=== PATIENT | male | born 1960 | race Caucasian/White ===

== ENCOUNTER 2017-05-30 09:00 | Inpatient (IN) | payer BC ==
--- NOTE | 2017-05-17 20:11 | HP ---
HISTORY AND PHYSICAL: DATE OF ADMISSION/SURGERY: 06/01/17 PRIMARY CARE PHYSICIAN: Dr. Woods. SURGEON: Ivonne Bills MD * (DICTATED BY SHANNON FOURNIER) PROCEDURE: Left total knee arthroplasty. CHIEF COMPLAINT: Left knee pain. HISTORY OF PRESENT ILLNESS: Mr. Hilton is a 56-year-old gentleman with continued complaints of left knee pain secondary to advanced osteoarthritis. He has failed conservative management and elected to proceed with a left total knee arthroplasty, which is scheduled on 06/01/[address] Bills. PAST MEDICAL HISTORY: Hypertension, history of melanoma, high cholesterol, ADHD , seasonal allergies, and cervical and lumbar stenosis. PAST SURGICAL HISTORY: Removal of melanoma; cyst removal, right wrist; bilateral carpal tunnel release; and hernia repair. CURRENT MEDICATIONS: 1. Simvastatin. 2. Methylphenidate. 3. Vitamin C Men's one a day. 4. Fish oil. 5. Tylenol. 6. Celebrex. 7. Magnesium. ALLERGIES: None. FAMILY HISTORY: Coronary artery disease and cancer. SOCIAL HISTORY: He is a 56-year-old gentleman. Lives with his . 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 He quit smoking back in 1990. He denies use of drugs and use of occasional alcohol. REVIEW OF SYSTEMS: A complete 14-point review of systems was reviewed with the patient, it was positive for history of hypertension. He denies history of DVT , PE, hepatitis C, HIV, or anesthesia problems. PHYSICAL EXAMINATION GENERAL: He is well developed, well nourished, in no acute distress. VITAL SIGNS: He stands 5 feet tall 9 inches tall, weighs 230 pounds. His blood pressure is 120/82, his heart rate is 84. HEENT: Normocephalic, atraumatic. NECK: Supple. No palpable lymph nodes. PULMONARY: Lungs are clear to auscultation bilaterally. CARDIO: Regular rate and rhythm. Strong S1, S2. ABDOMEN: Soft, nontender, and nondistended. MUSCULOSKELETAL: Left lower extremity, the skin is intact. There are no open wounds or abrasions. There is a mild joint effusion and some tenderness over the medial and lateral joint line. 10 to 120 degrees range of motion bilaterally. He is distally neurovascularly intact. ASSESSMENT AND PLAN: Mr. Hilton is a 56-year-old gentleman with continued complaints of left knee pain secondary to advanced osteoarthritis. He has failed conservative management and elected to proceed with a left total knee arthroplasty, which is scheduled for 06/01/[address] Bills discussed the risks and benefits of the surgery at today's visit and all of his questions were answered. Coumadin, Percocet, and Colace were sent to his pharmacy for postoperative pain control and DVT prophylaxis. He will follow with Dr. Bills 2 weeks after the surgery. SHANNON FOURNIER [id number]/[facility] #: [id number] VIRGIL
[2017-05-31] MEDS ORDERED: Buffered Lidocaine 0.9% SYRIN* 5 ML/SYR SYRINGE INTRADERM ONE (15:45)
--- OUTSIDE RECORDS SUMMARY | 2017-06-01 08:06 | XMS REPORT ---
:1960 External Reference #:[id number] Author Organization [facility] Address [address] [address] Phone [phone] Care Team Providers Name Role Phone Vineet Woods MD Primary Care Physician Unavailable Payers Type Date Identification Numbers Payment Provider Subscriber Commercial Effective: Policy Number: BS Storm Hilton 2016 [id number] PayID: [id number] Jose J [id number] ZANDER Krishnan [id number] Medigap Part B Effective: 2016 Policy Number: BS Storm Gerry Hilton [id number] Expires: 2016 PayID: [id number] ZANDER Marin [id number] Medigap Part B Effective: 2011 Policy Number: BS Storm Hilton [id number] Expires: 2016 PayID: [id number] Jose J [id number] Garner [id number] Problems Date Description Provider Status Onset: 03/09/2016 Localized, primary osteoarthritis Ivonne Bills M.D. Active Onset: 05/21/2014 Chest pain Charity Castro M.D. Active Onset: 06/17/2013 Cervical spondylosis without myelopathy Armnado Shaw M.D. Active Onset: 02/19/2013 Dizziness and giddiness Charity Castro M.D. Active Onset: 02/19/2013 FH: Cardiovascular disease Charity Castro M.D. Active Onset: 02/19/2013 Obesity Charity Castro M.D. Active Onset: 02/19/2013 Pure hypercholesterolemia Charity Castro M.D. Active Onset: 02/19/2013 Essential hypertension Charity Castro M.D. Active Onset: 02/19/2013 Palpitations Charity Castro M.D. Active Family History Date Family Member(s) Problem(s) Comments General Heart Disease General Coronary Artery Disease (CAD) General Cancer General Spinal Stenosis father Social History Type Date Description Comments Lives With Occupation [employer] currently working Cigarette Use Quit 23 Years Ago ETOH Use Drinks Alcoholic Beverages Occasionally Smoking Patient is a former smoker quit in 1990 Recreational Drug Use Denies Drug Use Daily Caffeine Consumes on average 2 cups of regular 1-2 cups daily coffee per day Allergies, Adverse Reactions, Alerts Date Description Reaction Status Severity Comments 07/04/2012 NKDA active Medications Medication Date Status Form Strength Qnty SIG Indications Ordering Provider Warfarin Sodium 05/17 Active Tablets 2mg 90tab take 1-3 Ivonne s tabs by Sanju, mouth at M.D. 5pm nightly Colace 05/17 Active Capsules 100mg 90cap 1 tab by Ivonne s mouth 2-3 Sanju, times a M.D. day as needed Oxycodone-Acetaminop 05/17 Active Tablets 5-325mg 90tab 1-2 tabs Ivonne s by mouth Sanju, every 4-6 M.D. hours as needed for post-op pain. Simvastatin 00 Active Tablets 20mg 1 po qhs Unknown /0000 Methylphenidate HCL Active Tablets 36mg Unknown ER /0000 ER Vitamin C Active Tablets 1000mg 1 po qd Unknown /0000 prn Mens 50+ Multi Active Tablets 1 po qd Unknown Vitamin & /0000 Mineral Formula Fish Oil Active 1 po qd Unknown /0000 Tylenol 00/ Active Unknown /0000 Celebrex Active Unknown /0000 Hydrochlorothiazide Hx Capsules 12.5mg 1 po qd Unknown /0000 - 05/21 Flector Hx Patches 1.3% 60uni q 12 Unknown /0000 ts hours prn - 05/21 B Complete / Hx Tablets 1 po qd Unknown /0000 - 05/16 Metamucil 00/00 Hx 1 tbsp po Unknown /0000 qd - 01/11 Percocet 00/ Hx 1 qhs Unknown /0000 - 01/11 Skelaxin Hx 1 tablet Unknown /0000 daily - - muscle 01/11 relaxant Ibuprofen Hx 300mg 1 q4hr Unknown /0000 - 05/16 Naproxen Hx Unknown /0000 - 05/16 Medications Administered in Office Medication Date Status Form Strength Qnty SIG Indications Ordering Provider Depomedrol Administered Injection Ivonne 40MG Wu Bills M.D. Depomedrol Administered Injection Ivonne 40MG Wu Bills M.D. Depomedrol Administered Injection Ivonne 40MG Wu Bills M.D. Depomedrol Administered Injection Ivonne 40MG Wu Bills M.D. Depomedrol Administered Injection Ivonne 40MG Jack Bills M.D. Depomedrol Administered Injection Ivonne 40MG 016 Margret Bills Depomedrol Administered Injection [place] 40MG Jack Corral M.D. Vital Signs Date Vital Result Comment 05/17/2017 Height 69 inches 5'9" Weight 231.00 lb Heart Rate 84 /min BP Systolic 120 mmHg BP Diastolic 82 mmHg BMI (Body Mass Index) 34.1 kg/m2 04/10/2017 Height 69 inches 5'9" Weight 230.00 lb Respiratory Rate 18 /min Pain Level 8 At Worst BMI (Body Mass Index) 34.0 kg/m2 01/06/2017 Height 69 inches 5'9" Weight 230.00 lb BP Systolic 122 mmHg BP Diastolic 74 mmHg Respiratory Rate 18 /min Pain Level 4 BMI (Body Mass Index) 34.0 kg/m2 09/02/2016 Height 69 inches 5'9" Weight 230.00 lb Heart Rate 85 /min BP Systolic 133 mmHg BP Diastolic 87 mmHg Body Temperature 97.3 F BMI (Body Mass Index) 34.0 kg/m2 06/01/2016 Height 69.5 inches 5'9.50" Weight 228.00 lb Respiratory Rate 19 /min Pain Level 3 BMI (Body Mass Index) 33.2 kg/m2 04/20/2016 Height 69.5 inches Weight 228.00 lb Heart Rate 79 /min BP Systolic 138 mmHg BP Diastolic 80 mmHg Pain Level 8 BMI (Body Mass Index) 33.2 kg/m2 03/09/2016 Height 69.5 inches 5'9.50" Weight 228.00 lb Heart Rate 74 /min BP Systolic 134 mmHg BP Diastolic 84 mmHg Pain Level 6 BMI (Body Mass Index) 33.2 kg/m2 02/03/2016 Height 69 inches 5'9" Weight 218.00 lb BP Systolic 142 mmHg BP Diastolic 82 mmHg Pain Level 1 BMI (Body Mass Index) 32.2 kg/m2 01/13/2016 Height 69 inches 5'9" Weight 218.00 lb Heart Rate 64 /min BP Systolic Sitting 138 mmHg BP Diastolic Sitting 82 mmHg Respiratory Rate 16 /min Pain Level 6 BMI (Body Mass Index) 32.2 kg/m2 07/02/2014 Height 68.5 inches 5'8.50" Weight 227.00 lb Heart Rate 76 /min BP Systolic Sitting 124 mmHg LA, Lg cuff BP Diastolic Sitting 82 mmHg LA, Lg cuff BP Systolic Standing 128 mmHg LA BP Diastolic Standing 82 mmHg LA Respiratory Rate 16 /min BMI (Body Mass Index) 34.0 kg/m2 05/21/2014 Height 68.5 inches 5'8.50" Weight 226.00 lb without shoes Heart Rate 88 /min BP Systolic Sitting 130 mmHg L arm , reg cuff BP Diastolic Sitting 90 mmHg L arm , reg cuff BP Systolic Standing 128 mmHg BP Diastolic Standing 90 mmHg Respiratory Rate 18 /min BMI (Body Mass Index) 33.9 kg/m2 06/17/2013 Height 68.5 inches 5'8.50" Weight 216.00 lb BP Systolic 138 mmHg BP Diastolic 78 mmHg Pain Level 0 BMI (Body Mass Index) 32.4 kg/m2 02/19/2013 Height 68.5 inches 5'8.50" Weight 211.00 lb Heart Rate 68 /min BP Systolic Sitting 118 mmHg LA reg cuff BP Diastolic Sitting 78 mmHg LA reg cuff BP Systolic Standing 110 mmHg LA BP Diastolic Standing 84 mmHg LA Respiratory Rate 18 /min BMI (Body Mass Index) 31.6 kg/m2 Results Description No Information Procedures Date CPT Code Description Status 01/06/2017 Inject/Drain Joint/Bursa Major Completed 09/02/2016 Inject/Drain Joint/Bursa Major Completed 03/09/2016 Inject/Drain Joint/Bursa Major Completed 01/13/2016 Inject Tendon Sheath Or Ligament Aponeurosis Eg Plantar Completed Fascia 06/17/2014 34648 ECHO Stress Test Incl Perf Contiuous ekg Monitoring Completed W/Phys Superv 05/21/2014 59058 EKG Tracing & Interpretation Completed 01/28/2014 16000 Repair Hernia Umbilical > 5 Yrs, Reducible Completed 08/09/2012 96648 Stress Test Completed 07/13/2012 30606 ECHO Transthoracic, Real-Time 2D With Doppler And Color Completed Flow 07/04/2012 97860 EKG Tracing & Interpretation Completed Encounters Type Date Location Provider CPT E/M Dx Office Visit 04/10/2017 [facility] Ivonne Bills M.D. 65353 M25.561 8:30a [facility] M25.562 M25.461 M25.462 M17.0 Office Visit 06/01/2016 8:15a [facility] Ivonne Bills M.D. 05477 M25.561 [facility] M25.562 M17.0 M25.461 M25.462 Office Visit 04/20/2016 11:30a [facility] Ivonne Bills M.D. 96533 M25.561 [facility] M25.562 M25.461 M17.0 Office Visit 03/09/2016 10:15a [facility] Ivonne Bills M.D. 64272 M25.561 [facility] M25.562 M17.0 M25.462 M25.461 Office Visit 02/03/2016 2:00p [facility] [place] Corral 35832 M65.341 Of CBrit Oswald Office Visit 01/13/2016 2:00p [facility] [place] 37257 M65.341 Of CFartunMJustin Oswald Office Visit 07/02/2014 10:00a [facility] Of SHANNON Montiel 56525 786.50 [employer] 272.0 V17.49 401.9 Office Visit 05/21/2014 4:00p [facility] Of Charity Castro M.D. 59367 786.50 [employer] 272.0 Office Visit 06/17/2013 9:45a [facility] Armando Shaw M.D. 63812 721.0 Of [employer] Office Visit 02/19/2013 3:15p [facility] Grace Charity Castro M.D. 17346 785.1 [facility] 401.9 272.0 278.00 V17.49 780.4 Office Visit 08/14/2012 2:00p [facility] Grace Chraity Castro M.D. 43341 785.1 [employer] 401.9 272.0 278.00 Office Visit 07/04/2012 9:15a [facility] Kvng Castro M.D. 33919 785.1 [facility] 272.0 V17.49 Plan of Care Future Appointment(s):06/12/2017 10:15 am - Ivonne Bills M.D. at [facility].A.06/01/2017 7:30 am - SHANNON Dawn at [facility].A.06/01/2017 7:30 am - Freddy Moffett PA-C at [facility].A.06/01/2017 7:30 am - SHANNON Spears at [facility].A.06/01/2017 7:30 am - Ivonne Bills M.D. at [facility].05/17/2017 - Ivonne Bills M.D.M25.562 Pain in left kneeFollow up:Follow up: 2 weeks after [id number] Effusion, left kneeM17.0 Bilateral primary osteoarthritis of knee
[2017-06-01] MEDS ORDERED: ceFAZolin 2 GM PREMIX (*) 2 GM/50 ML BAG IVPB ONE (08:11)
[2017-06-01] MEDS ORDERED: Buffered Lidocaine 0.9% SYRIN* 5 ML/SYR SYRINGE ONE (08:11)
[2017-06-01] MEDS ORDERED: Bupivacaine 0.25% SDV* 30 ML ONE (08:52)
[2017-06-01] MEDS ORDERED: Atracurium* 10 MG/ML 10 ML VIAL ONE (08:52)
[2017-06-01] MEDS ORDERED: fentaNYL* 50 MCG/ML 2 ML VIAL (100 MCG VIAL) ONE ×5 (08:52→12:14)
[2017-06-01] MEDS ORDERED: Propofol* 10 MG/ML 20 ML BTL IV PUSH ONE (08:52)
[2017-06-01] MEDS ORDERED: Midazolam* 1 MG/ML 2 ML VIAL (2 MG) ONE (08:53)
[2017-06-01] MEDS ORDERED: Ondansetron TAB* 4 MG PO PRN (09:03)
[2017-06-01] MEDS ORDERED: Acetaminophen TAB* 325 MG PO PRN (09:03)
[2017-06-01] MEDS ORDERED: oxyCODONE/Acetamin 5/325 MG* TAB PO PRN (09:03)
[2017-06-01] MEDS ORDERED: Magnesium Hydroxide LIQ* 30 ML UDC PO PRN (09:03)
[2017-06-01] MEDS ORDERED: diPHENhydraMINE IV* 50 MG/ML 1 ml VIAL (BENADRYL) IV PRN (09:03)
[2017-06-01] MEDS ORDERED: Cyclobenzaprine TAB* 10 MG PO PRN (09:03)
[2017-06-01] MEDS ORDERED: Polyethylene Glycol 3350* 17 GM PACKET PO PRN (09:03)
[2017-06-01] MEDS ORDERED: Ondansetron INJ* 2 MG/ML VIAL IV PRN ×2 (09:03→10:42)
[2017-06-01] MEDS ORDERED: Bisacodyl SUPP* 10 MG SUPP PR PRN (09:03)
[2017-06-01] MEDS ORDERED: Morphine INJ* 2 MG/ML 1 ML CARPUJECT IV PRN (09:03)
[2017-06-01] MEDS ORDERED: Dexamethasone IV* 4 MG/ML 1 ML (4 MG) ONE (09:34)
[2017-06-01] MEDS ORDERED: DiMENhydriNATE IV* 50 MG/ML VIAL IV PUSH PRN (10:42)
[2017-06-01] MEDS ORDERED: Naloxone* 0.4 MG/ML 1 ML VIAL IV PRN (10:42)
[2017-06-01] MEDS ORDERED: Ondansetron INJ* 2 MG/ML VIAL ONE (11:22)
[2017-06-01] MEDS ORDERED: Ketorolac INJ* 30 MG/ML 1 ML VIAL ONE (11:25)
[2017-06-01] MEDS ORDERED: HYDROmorphone INJ* 2 MG/ML CARPUJECT SYRINGE ONE (12:14)
[2017-06-01] MEDS: fentaNYL* 50 MCG/ML 2 ML VIAL (100 MCG VIAL) IV PRN ×4 (12:17→12:59)
[2017-06-01] MEDS: HYDROmorphone INJ* 1 MG/ML CARPUJECT SYRINGE IV PRN ×5 (12:19→13:18)
--- NOTE | 2017-06-01 12:34 | RAD ---
Indication: Left total knee replacement. 2 views of left knee demonstrates bipolar left knee replacement in satisfactory position. No loosening is noted. IMPRESSION: Left total knee replacement in satisfactory position.
[2017-06-01] MEDS ORDERED: oxyCODONE/Acetamin 5/325 MG* TAB ONE (13:05)
[2017-06-01] MEDS: oxyCODONE/Acetamin 5/325 MG* TAB PO PRN ×3 (13:06→21:18)
[2017-06-01] MEDS ORDERED: Warfarin TAB(*) 6 MG PO ONE (17:00)
[2017-06-01] MEDS: Atorvastatin* 10 MG TAB PO SCH (17:11)
[2017-06-01] MEDS: ceFAZolin 1 GM in Dextrose (*) 1 GM/50 ML BAG IVPB SCH (17:56)
[2017-06-01] MEDS: Docusate CAP* 100 MG PO SCH (21:18)
[2017-06-01] MEDS: Magnesium Hydroxide LIQ* 30 ML UDC PO SCH (21:44)
[2017-06-02] MEDS: oxyCODONE/Acetamin 5/325 MG* TAB PO PRN ×5 (01:20→23:58)
[2017-06-02] MEDS: ceFAZolin 1 GM in Dextrose (*) 1 GM/50 ML BAG IVPB SCH ×2 (01:21→08:44)
[2017-06-02 06:22] LABS: Hematocrit 36 % (42-52); Hemoglobin 12.1 g/dl (14.0-18.0); Mean Platelet Volume 8 um3 (7.4-10.4); Platelet Count 220 10^3/ul (150-450)
[2017-06-02 06:34] LABS: EGFR Non-African American 91.1 (>60); INR 0.99 (0.77-1.02)
--- NOTE | 2017-06-02 08:31 | PN ---
Subjective - Subjective Reason for Note: Consultation Note History: He is 1 day post left total knee arthroplasty. As I arrived, PT and OT were about to have him walk for the first time. He is feeling well and his pain is controlled. He has had his Titus catheter removed - hasn't voided yet. He has eaten a normal breakfast with good appetite. He has passed flatus. He has had no chest pain, palpitations or light headed. He feels a little fuzzy from the opioids. Active Problems: Active Problems Status post total knee replacement, left (Acute) Z96.652 ADHD (Chronic) Essential hypertension (Chronic) I10 Hepatic steatosis (Chronic) K76.0 Hypercholesterolemia (Chronic) E78.00 Obesity (BMI 30.0-34.9) (Chronic) E66.9 Prediabetes (Chronic) R73.03 Current Medications: Current Medications Acetaminophen (Tylenol Tab*) 650 mg PO Q4H PRN PRN Reason: PAIN OR TEMPERATURE Atorvastatin Calcium (Lipitor*) 10 mg PO QPM [facility] Last Admin: 06/01/17 17:11 Dose: 10 mg Bisacodyl (Dulcolax Supp*) 10 mg CA DAILY PRN PRN Reason: constipation Cyclobenzaprine HCl (Flexeril Tab*) 10 mg PO TID PRN PRN Reason: SPASMS Diphenhydramine HCl (Benadryl Iv*) 12.5 mg IV Q6H PRN PRN Reason: PRURITIS Docusate Sodium (Colace Cap*) 100 mg PO BID [facility] Last Admin: 06/01/17 21:18 Dose: 100 mg Enoxaparin Sodium (Lovenox(*)) 40 mg SUBCUT Q24H [facility] Cefazolin Sodium/Dextrose (Kefzol 1 Gm In Dextrose Duplex (*)) 1 gm in 50 mls @ 200 mls/hr IVPB Q8H [facility] Stop: 06/02/17 09:44 Last Admin: 06/02/17 01:21 Dose: 200 mls/hr Lactated Ringer's (Lactated Ringers 1000 Ml Bag*) 1,000 mls @ 100 mls/hr IV PER RATE [facility] Lactulose (Lactulose*) 30 ml PO Q6H PRN PRN Reason: constipation Magnesium Hydroxide (Milk Of Magnesia Liq*) 30 ml PO BID [facility] Last Admin: 06/01/17 21:44 Dose: Not Given Magnesium Hydroxide (Milk Of Magncrystal Liq*) 30 ml PO Q6H PRN PRN Reason: constipation Methylphenidate HCl (Concerta Er Tab*) 36 mg PO QAM [facility] Morphine Sulfate (Morphine Inj (Syringe)*) 2 mg IV Q2H PRN PRN Reason: PAIN Ondansetron HCl (Zofran Inj*) 4 mg IV Q6H PRN PRN Reason: nausea Ondansetron HCl (Zofran Tab*) 4 mg PO Q6H PRN PRN Reason: NAUSEA Oxycodone HCl (Roxycodone Tab*) 10 mg PO Q4H PRN PRN Reason: SEVERE PAIN Oxycodone/Acetaminophen (Percocet 5/325 Tab*) 2 tab PO Q4H PRN PRN Reason: PAIN Last Admin: 06/02/17 06:39 Dose: 2 tab Oxycodone/Acetaminophen (Percocet 5/325 Tab*) 1 tab PO Q4H PRN PRN Reason: PAIN Pharmacy Profile Note (Coumadin Daily Reminder*) 1 note FOLLOW UP 1700 [facility] Polyethylene Glycol/Electrolytes (Miralax*) 17 gm PO DAILY PRN PRN Reason: Constipation Home Medications: Home Medications Medication Instructions Recorded Confirmed Type Simvastatin 20 mg PO QPM 02/20/12 06/01/17 History Methylphenidate ER TAB* [Concerta 36 mg PO QAM 12/27/12 06/01/17 History ER TAB*] Multivitamin 1 tab PO QAM 01/28/14 06/01/17 History [place] 3 1000 mg 1 cap PO QAM 01/28/14 06/01/17 History Vitamin C 1 tab PO QAM PRN 01/28/14 06/01/17 History Magnesium 250 mg PO QAM 05/17/17 06/01/17 History celeCOXIB CAP* [CeleBREX CAP*] 200 mg PO QAM 05/17/17 06/01/17 History Allergies: Allergies Allergy/AdvReac Type Severity Reaction Status Date / Time No Known Allergies Allergy Verified 06/01/17 08:14 Objective - Vital Signs Vital Signs: Vital Signs 06/01/17 06/01/17 06/01/17 11:45 11:50 11:55 Temperature 97.5 F Pulse Rate 92 85 82 Respiratory 12 12 12 Rate Blood Pressure 145/89 142/78 135/86 (mmHg) O2 Sat by Pulse 98 99 99 Oximetry 06/01/17 06/01/17 06/01/17 12:00 12:15 12:17 Temperature Pulse Rate 85 84 Respiratory 14 14 14 Rate Blood Pressure 144/85 138/90 (mmHg) O2 Sat by Pulse 100 100 Oximetry 06/01/17 06/01/17 06/01/17 12:19 12:28 12:29 Temperature Pulse Rate Respiratory 14 14 14 Rate Blood Pressure (mmHg) O2 Sat by Pulse Oximetry 06/01/17 06/01/17 06/01/17 12:30 12:47 12:48 Temperature 98.8 F Pulse Rate 84 84 Respiratory 14 14 14 Rate Blood Pressure 128/84 121/81 (mmHg) O2 Sat by Pulse 100 100 Oximetry 06/01/17 06/01/17 06/01/17 12:50 12:59 13:00 Temperature Pulse Rate 87 Respiratory 14 14 14 Rate Blood Pressure 117/89 (mmHg) O2 Sat by Pulse 100 Oximetry 06/01/17 06/01/17 06/01/17 13:06 13:18 13:26 Temperature Pulse Rate 87 Respiratory 14 14 14 Rate Blood Pressure 108/79 (mmHg) O2 Sat by Pulse 96 Oximetry 06/01/17 06/01/17 06/01/17 13:37 13:41 13:45 Temperature 98.1 F 98.1 F Pulse Rate 81 81 Respiratory 16 18 16 Rate Blood Pressure 132/74 132/74 (mmHg) O2 Sat by Pulse 98 98 Oximetry 06/01/17 06/01/17 06/01/17 14:47 15:44 16:00 Temperature 98.5 F 98.1 F Pulse Rate 85 87 Respiratory 18 16 Rate Blood Pressure 134/71 129/75 (mmHg) O2 Sat by Pulse 97 99 97 Oximetry 06/01/17 06/01/17 06/01/17 17:10 17:42 19:26 Temperature 97.9 F Pulse Rate 87 Respiratory 20 16 16 Rate Blood Pressure 129/77 (mmHg) O2 Sat by Pulse 98 Oximetry 06/01/17 06/01/17 06/01/17 19:27 19:41 21:18 Temperature 97.5 F Pulse Rate 92 Respiratory 16 16 16 Rate Blood Pressure 125/68 (mmHg) O2 Sat by Pulse 98 Oximetry 06/01/17 06/01/17 06/01/17 21:48 23:50 23:59 Temperature 98.2 F Pulse Rate 96 Respiratory 16 16 16 Rate Blood Pressure 116/58 (mmHg) O2 Sat by Pulse 98 Oximetry 06/02/17 06/02/17 06/02/17 01:20 03:54 04:03 Temperature 98.3 F Pulse Rate 89 Respiratory 16 16 16 Rate Blood Pressure 109/61 (mmHg) O2 Sat by Pulse 98 Oximetry 06/02/17 06/02/17 06/02/17 04:46 06:39 07:26 Temperature 97.9 F Pulse Rate 72 Respiratory 16 17 Rate Blood Pressure 111/60 (mmHg) O2 Sat by Pulse 98 97 Oximetry - Intake and Output Intake and Output: Intake & Output 05/30/17 05/31/17 06/01/17 06/02/17 11:59 11:59 11:59 11:59 Intake Total 1800 2670 Output Total 550 3350 Balance 1250 -680 Weight 226 lb Intake: IV Fluids 1800 970 LR 1800 970 IVPB 100 ABX - CEFAZOLIN 100 Oral 1600 Output: Urine 300 Titus 3350 Estimated Blood Loss 250 ADLs: Meal Record Start: 06/01/17 13: 41 Freq: Status: Active Protocol: Created 06/01/17 13:41 (Rec: 06/01/17 13:41 [id number]) Intake and Output Start: 06/01/17 09: 03 Freq: 06,14,2200 Status: Active Protocol: Created 06/01/17 09:09 [id number] (Rec: 06/01/17 09:09 BKG [id number]) Document 06/01/17 22:47 [id number] (Rec: 06/01/17 22:48 [id number] [id number]) Document 06/02/17 01:27 [id number] (Rec: 06/02/17 01:27 [id number] [id number]) Document 06/02/17 05:07 [id number] (Rec: 06/02/17 05:07 [id number] U-C04) Intake and Output Start: 06/01/17 13: 41 Freq: DAILY@0600,1400,2200 Status: Complete Protocol: Created 06/01/17 13:41 (Rec: 06/01/17 13:41 [id number] [facility]-M16) Document 06/01/17 22:34 [id number] (Rec: 06/01/17 22:34 [id number] [facility]-M16) Document 06/01/17 22:47 (Rec: 06/01/17 22:48 [id number]) - Physical Exam General Physical Exam Comment: He was sitting on the edge of his bed. He was warm/well perfused. He was conversational. After I examined him, he stood up and walked using both legs using a walker - supervised by OT and PT. He did this without undue effort or discomfort. General: No Cyanosis, No Anemia, No Jaundice, No Clubbing Lungs and Chest: Yes: Chest Expansion Full, Chest Expansion Symetrica, Percussion Note Resonant, Vessicular Breath Sounds. No: Crackles, Wheezes Heart Rate and Rhythm: Regular JVP: Not Elevated Additional Cardiovascular: Yes: Normal Heart Sounds. No: Heart Murmur, Pedal Edema - Neuro Orientation: A/O x3 Speech: Normal Results - Results Lab Results: Laboratory Results - last 24 hr 06/01/17 06/02/17 06/02/17 08:32 05:47 05:47 Hgb 12.1 L Hct 36 L Plt Count 220 MPV 8 INR (Anticoag Therapy) 0.99 Sodium Potassium Chloride Carbon Dioxide Anion Gap BUN Creatinine Est GFR ( Amer) Est GFR (Non-Af Amer) BUN/Creatinine Ratio Glucose Calcium Blood Type A Positive Antibody Screen Negative 06/02/17 05:47 Hgb Hct Plt Count MPV INR (Anticoag Therapy) Sodium 134 Potassium 4.3 Chloride 101 Carbon Dioxide 24 Anion Gap 9 BUN 12 Creatinine 0.87 Est GFR ( Amer) 117.2 Est GFR (Non-Af Amer) 91.1 BUN/Creatinine Ratio 13.8 Glucose 171 H Calcium 9.0 Blood Type Antibody Screen Assessment - Problem List Assessment: Patient Problems Status post total knee replacement, left (Acute) ADHD (Chronic) Essential hypertension (Chronic) Hepatic steatosis (Chronic) Hypercholesterolemia (Chronic) Obesity (BMI 30.0-34.9) (Chronic) Prediabetes (Chronic) Plan: Status post total knee replacement, left (Acute) He has tolerated the left TKA without complication. He is able to walk and has good pain control. Dr. Bills is organizing warfarin to prevent DVTs. Essential hypertension (Chronic) His BP is at the lower end, but he has no orthostatic hypotension. Hepatic steatosis (Chronic) secondary diagnosis Hypercholesterolemia (Chronic) secondary diagnosis Obesity (BMI 30.0-34.9) (Chronic) secondary diagnosis Prediabetes (Chronic) His glucose is slightly elevated this morning, but not unduly - this relates to the stress of surgery. He will continue his consistent carbohydrate diet. I discussed the above with the patient. From the medical point of view he requires no further follow up this hospitalization.
[2017-06-02] MEDS: Docusate CAP* 100 MG PO SCH ×2 (08:50→20:14)
[2017-06-02] MEDS: Magnesium Hydroxide LIQ* 30 ML UDC PO SCH ×2 (08:50→20:14)
[2017-06-02] MEDS: Methylphenidate ER TAB* 18 MG PO SCH (08:50)
[2017-06-02] MEDS: Enoxaparin(*) 40 MG/0.4 ML SYR SUBCUT SCH (11:47)
--- NOTE | 2017-06-02 12:37 | PN ---
Progress Note - Progress Note Date of Service: 06/02/17 SOAP: Subjective: 56 y/o male s/p L TKA 06/[address] Sterling. Patient reports feeling well, pain well controlled, no questions vss afebrile overnight. Objective: General- WEll appearing, NAD AO sitting in chair comforably MSK- L LE- Surgical dressing intact, drain removed by DR sterling this AM without complications, neg homans, PT 2+ b/l, + DF/PF b/l. Vital Signs Temp 97.9 F 06/02/17 07:26 Pulse 72 06/02/17 07:26 Resp 18 06/02/17 11:48 BP 111/60 06/02/17 07:26 Pulse Ox 97 06/02/17 07:26 Intake & Output 06/01/17 06/02/17 06/02/17 18:59 06:59 18:59 Intake Total 1800 2670 225 Output Total 550 3350 Balance 1250 -680 225 Weight 102.512 kg Intake: IV Fluids 1800 970 LR 1800 970 IVPB 100 ABX - CEFAZOLIN 100 Oral 1600 225 Output: Urine 300 Titus 3350 Estimated Blood Loss 250 Assessment: Stable 56 y/o male s/p L TKA 06/[address] Sterling. Plan: - DVT pro- lovenox, coumadin 10mg coumadin tonight. - coninue PT OT - DM management by DR. Woods - H&H vaishali, continue to monitor - Likely D/C home tomorrow - Pain controlled- mild nausea Active Medications Generic Name Dose Route Start Last Admin Trade Name Freq PRN Reason Stop Dose Admin Acetaminophen 650 mg 06/01/17 09:03 Tylenol Tab* PO Q4H PRN PAIN OR TEMPERATURE Atorvastatin Calcium 10 mg 06/01/17 18:00 06/01/17 17:11 Lipitor* PO 10 mg QPM LEO Administration Bisacodyl 10 mg 06/01/17 09:03 Dulcolax Supp* NV DAILY PRN constipation Cyclobenzaprine HCl 10 mg 06/01/17 09:03 Flexeril Tab* PO TID PRN SPASMS Diphenhydramine HCl 12.5 mg 06/01/17 09:03 Benadryl Iv* IV Q6H PRN PRURITIS Docusate Sodium 100 mg 06/01/17 21:00 06/02/17 08:50 Colace Cap* PO 100 mg BID LEO Administration Enoxaparin Sodium 40 mg 06/02/17 12:00 06/02/17 11:47 Lovenox(*) SUBCUT 40 mg Q24H LEO Administration Lactulose 30 ml 06/01/17 09:03 Lactulose* PO Q6H PRN constipation Magnesium Hydroxide 30 ml 06/01/17 21:00 06/02/17 08:50 Milk Of Magnesia Liq* PO 30 ml BID LEO Administration Magnesium Hydroxide 30 ml 06/01/17 09:03 Milk Of Magnesia Liq* PO Q6H PRN constipation Methylphenidate HCl 36 mg 06/02/17 09:00 06/02/17 08:50 Concerta Er Tab* PO 36 mg QAM LEO Administration Morphine Sulfate 2 mg 06/01/17 09:03 Morphine Inj (Syringe)* IV Q2H PRN PAIN Ondansetron HCl 4 mg 06/01/17 09:03 06/02/17 08:46 Zofran Inj* IV 4 mg Q6H PRN Administration nausea Ondansetron HCl 4 mg 06/01/17 09:03 Zofran Tab* PO Q6H PRN NAUSEA Oxycodone HCl 10 mg 06/01/17 09:03 Roxycodone Tab* PO Q4H PRN SEVERE PAIN Oxycodone/Acetaminophen 2 tab 06/01/17 09:03 06/02/17 11:48 Percocet 5/325 Tab* PO 2 tab Q4H PRN Administration PAIN Oxycodone/Acetaminophen 1 tab 06/01/17 09:03 Percocet 5/325 Tab* PO Q4H PRN PAIN Pharmacy Profile Note 1 note 06/02/17 17:00 Coumadin Daily Reminder* FOLLOW UP 1700 LEO Polyethylene Glycol/Electrolytes 17 gm 06/01/17 09:03 Miralax* PO DAILY PRN Constipation Warfarin Sodium 10 mg 06/02/17 17:00 Coumadin Tab(*) PO 06/02/17 17:01 ONCE@1700 ONE Protocol
[2017-06-02] MEDS ORDERED: Warfarin TAB(*) 10 MG PO ONE (17:00)
[2017-06-02] MEDS: oxyCODONE TAB* 5 MG TAB PO PRN ×2 (17:24→21:45)
[2017-06-02] MEDS: Atorvastatin* 10 MG TAB PO SCH (17:24)
--- NOTE | 2017-06-02 20:30 | OP ---
OPERATIVE REPORT: DATE OF OPERATION: 06/01/17 DATE OF : 62 SURGEON: Ivonne Bills MD [place] TECHNICIAN: SHANNON Sousa Ms. did help throughout the procedure with preparation of the leg, wound retraction, manipul ation of the knee, and wound closure. ANESTHESIOLOGIST: Dr. Bonilla. ANESTHESIA: Spinal. PRE-OP DIAGNOSIS: Severe end-stage degenerative osteoarthritis of the left knee joint. POST-OP DIAGNOSIS: Severe end-stage degenerative osteoarthritis of the left knee joint. OPERATIVE PROCEDURE: Left total knee arthroplasty. TOURNIQUET TIME: 55 minutes. COMPLICATIONS: None. ESTIMATED BLOOD LOSS: 300 cc. SPECIMENS: Bone and cartilage from the left knee joint, sent to pathology. HARDWARE USED: Cemented [employer] total knee arthroplasty hardware. Two packages of Simplex bone cement. For the femur, an Oxinium left Legion posterior stabilized femoral component size 4. F or the tibia, size 4 left tibial baseplate, Casandra II. For the insert, a 13-mm posterior stabilize d articular insert, Casandra II and IV. Patella 32-mm 3-peg all poly patella. BRIEF HISTORY/INDICATION: Mr. Hilton is a 56-year-old gentleman with years of increasingly severe k nee pain. Radiographs showed [id number] arthritis of the left knee and he elected to undergo left total knee arthroplasty due to continued pain and decreased quality of life. He has failed all conse rvative treatment including antiinflammatories, pain medications, intraarticular injections, and phys ical therapy. Informed consent was obtained from the patient. He understood the risks of the procedure included, b ut were not limited to bleeding, infection, damage to nearby structures, continued pain, need for fur ther surgery, intraoperative fracture, nerve palsy, hardware failure or loosening, knee stiffness, lo ss of motion, stroke, heart attack, blood clot, and . He wished to proceed. INTRAOPERATIVE FINDINGS: Intraoperatively, the patient was noted to have tricompartmental loss of ca rtilage along the medial, lateral, and patellofemoral compartments. DESCRIPTION OF PROCEDURE: Mr. Hilton was identified in the preanesthesia unit. His left lower extrem ity was marked as the correct operative side. Informed consent was signed and placed in the chart. The patient was taken to the operating room and placed under spinal anesthesia. A Titus catheter was placed. Tourniquet was placed on the left thigh. The left lower extremity was prepped and draped i n the usual sterile fashion. Preop time-out was made to correctly identify the patient, side and site . Appropriate perioperative antibiotics were given within 1 hour of incision. Tourniquet was inflated and total tourniquet time for this procedure was 55 minutes. A 12-cm midline incision was made with the 10 blade and carried down to the extensor mechanism. A new 10 blade was used to make a standard medial parapatellar arthrotomy. Patella was subluxed laterally. Electrocaut jaskaran was used to subperiosteally elevate soft tissue off the superomedial tibia to the mid sagittal pl ane. The knee was flexed up. Anterior horn of the lateral meniscus and the ACL were sharply release d. A drill was used to enter the distal femur. Intramedullary distal femoral cutting guide was pinne d on the distal femur. Oscillating saw was used to make the distal femoral cut. External rotational guide was pinned on the distal femur and the distal femur was sized to a size 4. Size 4 multi-cuttin g jig was pinned on the distal femur. Oscillating saw was used to make the appropriate 4 chamfer cut s. Next, the PCL was completely released. Tibia was subluxed anteriorly. Extramedullary tibial cutting guide was pinned on the proximal tibia. The oscillating saw was used to make a proximal tibial cut p erpendicular to the mechanical axis of the tibia. The bone was carefully removed. The knee was brou ght out into full extension. A spacer block had good fit with the knee full extension. Medial and l ateral ligaments were well balanced. Flexion and extension gaps were balanced. The knee was flexed up. Lamina refrigerator room clerk was placed both medially and laterally. Any remaining meniscus was carefully re moved using electrocautery. Curved osteotome was used to remove the posterior osteophyte. Tibial tra y and drop howie were placed and once again confirmed a satisfactory tibial cut. A trial left size 4 femur was impacted on to the distal femur and had good fit. The box for the poste rior stabilized implant was prepared using a reamer and box cut osteotome. A trial 4 tibial tray wit h an 11-mm insert trial was placed. The knee was taken through range of motion. The knee had full e xtension to 130 degrees flexion with satisfactory patellofemoral tracking. The patella was everted. 9-mm of patellar bone and cartilage were carefully removed using an oscillating saw. The patella was sized to size 32. The 3 peg holes were drilled through the size 32 guide. Size 32 patella was plac ed and the knee was taken through range of motion. This trial had excellent patellofemoral tracking. All trials were carefully removed. The tibia was subluxed anteriorly and sized to a size 4. Proxima l tibia was prepared using a size 4 keel punch. All bony cut surfaces were copiously irrigated with sterile saline and dried. Final implants were cemented into place starting with the tibia followed b y the femur and last the patella. A 13-mm insert trial was placed while the knee was brought out int o full extension. The tourniquet was turned down at 55 minutes. The knee was copiously irrigated wi th sterile saline. Electrocautery was used to obtain meticulous hemostasis. Once the cement had ful ly cured, the insert trial was removed. Any excess cement was removed from around the capsule and im plant. Final insert chosen was a 13-mm posterior stabilized articular insert, size 3/4. This was lo cked into place on the tibial tray. Stability of the insert was checked and rechecked and noted to b e stable. The knee was once again copiously irrigated with sterile saline. The extensor mechanism was closed u sing interrupted #1 Vicryls over a medium Hemovac drain. The rest of the incision was closed in a la yered fashion using 0 and 2-0 Vicryls. The skin was closed using running 3-0 nylon suture. Sterile Xeroform, 4x4s, and Webril were used to cover the incision. Arthur wrap and cold pack were placed over this. The patient's anesthesia was reversed without difficulty. He was taken to the PACU in stable c ondition. Intended weightbearing will be weightbearing as tolerated. Intended DVT prophylaxis will b e Coumadin with a Lovenox bridge. [id number]/[facility] #: [id number]
[2017-06-03] MEDS: oxyCODONE TAB* 5 MG TAB PO PRN ×3 (03:03→11:31)
[2017-06-03] MEDS: oxyCODONE/Acetamin 5/325 MG* TAB PO PRN ×3 (04:57→15:17)
[2017-06-03 05:30] LABS: Hematocrit 36 % (42-52); Hemoglobin 12.4 g/dl (14.0-18.0); Mean Platelet Volume 7 um3 (7.4-10.4); Platelet Count 209 10^3/ul (150-450)
[2017-06-03 05:41] LABS: INR 1.58 (0.77-1.02)
[2017-06-03] MEDS: Magnesium Hydroxide LIQ* 30 ML UDC PO SCH (07:38)
[2017-06-03] MEDS: Docusate CAP* 100 MG PO SCH (07:38)
[2017-06-03] MEDS: Methylphenidate ER TAB* 18 MG PO SCH (07:39)
[2017-06-03] MEDS ORDERED: oxyCODONE SR TAB(*) 10 MG TAB.SR PO SCH (09:00)
--- NOTE | 2017-06-03 09:52 | PN ---
Progress Note - Progress Note Date of Service: 06/03/17 SOAP: Subjective: Patient states that he had severe pain overnight not controlled with oral medications. He has improved this morning. PT going well. Denies F/C, CP/SOB, calf pain. Has not had BM Objective: 56 y/o WDWN NAD LLE- inc c/d/i, dressing changed, calf soft NT, +DF/PF ankle, NVI Vital Signs Temp Pulse Resp BP Pulse Ox 98.9 F 89 16 154/79 92 06/03/17 07:33 06/03/17 07:33 06/03/17 09:34 06/03/17 07:33 06/03/17 07:33 Laboratory Results - last 24 hr 06/03/17 06/03/17 05:18 05:19 Hgb 12.4 L Hct 36 L Plt Count 209 MPV 7 L INR (Anticoag Therapy) 1.58 H Assessment: Stable 56 y/o male s/p L TKA [address] Bills POD 2. Plan: - DVT pro- lovenox, coumadin 8 mg coumadin tonight. - coninue PT OT- WBAT - H&H stable, continue to monitor - Oxycontin 10 mg q 12 hrs started for pain control - Likely D/C home tomorrow with VNS
[2017-06-03] MEDS: Enoxaparin(*) 40 MG/0.4 ML SYR SUBCUT SCH (11:33)
[2017-06-03 15:38] VITALS: BP 155/88
[2017-06-03] MEDS ORDERED: Warfarin TAB(*) 4 MG PO SCH (17:00)
[2017-06-03] MEDS: Atorvastatin* 10 MG TAB PO SCH (17:16)
--- NOTE | 2017-06-05 01:10 | DS ---
DISCHARGE SUMMARY: DATE OF ADMISSION: 06/01/17 DATE OF DISCHARGE: 06/03/17 PROVIDER: Ivonne Bills MD * (DICTATED BY SHANNON COPELAND) ADMITTING DIAGNOSIS: Status post left total knee arthroplasty for severe osteoarthritis of the left knee. SECONDARY DIAGNOSES: 1. Hypertension. 2. History of melanoma. 3. High cholesterol. 4. Attention deficit hyperactivity disorder. 5. Seasonal allergies. 6. Cervical and lumbar stenosis. CONSULTATIONS: PT, OT and Medicine. HOSPITAL COURSE: Mr. Hilton was admitted to [facility] on 06/01/17. He underwent a left total knee arthroplasty. Postoperatively, he recovered on the short stay surgical unit. Postop day #1, his Titus was removed, he was able to urinate on his own. He advanced to a regular diet without difficulty and his pain was controlled with oral Percocet. He was restarted on home medications. He was also started on the long-acting OxyContin for help with pain control. His labs and vitals remained stable. He was able to weight bear as tolerated on the left lower extremity. He advanced appropriately with PT and OT. DVT prophylaxis was managed with Lovenox and Coumadin until he reached a therapeutic INR. By postop day #2, he was orthopedically and medically stable for discharge to home with VNS services. PHYSICAL EXAMINATION: General: A 56-year-old well-developed, well-nourished male in no acute distress. Alert and oriented x3, appropriate mood and affect. Vital Signs: Temperature 97.9, pulse rate 95, respiratory rate 16, pulse ox 97%, blood pressure 155/88. Height 5 feet 9 inches, weight 226, BMI 32.4. Left Lower Extremity: The dressing was changed. The incision is well healing with no signs of infection. The calf is soft and nontender. Able to plantar flex and dorsiflex. Neurovascularly intact distally. DISCHARGE CONDITION: Stable. DISCHARGE MEDICATIONS: Home medications continued on discharge to include: 1. Simvastatin 10 mg, 20 mg by mouth at night. 2. Methylphenidate ER tablet 18 mg, 36 mg by mouth in the morning. 3. Multivitamin 1 by mouth daily. 4. Enterprise-3, 1000 mg capsules 1 by mouth in the morning. 5. Vitamin C tablets 1 by mouth in the morning as needed. 6. Celebrex 200 mg as needed in the morning. 7. Magnesium 250 mg by mouth in the morning. New medications on discharge to include: 1. Colace 100 mg 1 by mouth 2 to 3 times a day as needed for constipation. 2. OxyContin 10 mg 1 every 12 hours x1 week for pain. 3. Percocet 5/325, 1 to 2 every 4 to 6 hours as needed for pain. 4. Coumadin 2 mg 1 to 5 tabs daily as directed by doctor for 30 days. POSTOP DISCHARGE INSTRUCTIONS: The patient is weightbearing as tolerated on the left lower extremity. He may shower 3 days after surgery. No bathing, swimming or submerging the wound. He can use gentle soap and pat dry, cover with gauze and Arthur. He should call the orthopedic office if increased drainage , redness, increased pain or fever greater than 101.5, go to the ER with chest pain or shortness of breath. He should eat regular diet with increased foods and fiber to prevent constipation. He should continue to use Colace and if he has no bowel movement in 48 hours, he should call the office. He will continue physical therapy and occupational therapy exercises as shown. Visiting nurses to do wound checks and INR blood draws on Monday and . Coumadin dosing on 06/03/17, 8 mg; on 06/04/17, 8 mg; redraw on 06/05/17. The patient was instructed not to take Celebrex while on Coumadin. His pain will be controlled with Percocet 5/325 mg 1 to 2 every 4 to 6 hours as needed for pain. He was instructed that Percocet contains Tylenol, not to exceed 4000 mg of Tylenol a day. He will also take OxyContin 10 mg 1 every 12 hours for the first week to help with pain control. He will require antibiotics prior to any dental work in the future. He will follow up with Dr. Bills in 10 to 14 days postop. SHANNON COPELAND [id number]/[facility] #: [id number] [facility]ENTERDolores
== END 2017-06-03 17:40 | disposition home health service (06) | DRG 302 ==
LOC: AA 06-01 08:00 → SSU 06-01 14:38
PROVIDERS: ADMIT Orthopaedic Surgery Adult Reconstructive Orthopaedic Surgery; ATTEND Orthopaedic Surgery Adult Reconstructive Orthopaedic Surgery
PROC: 0SRD069 Replacement of Left Knee Joint with Oxidized Zirconium on Polyethylene Synthetic Substitute, Cemented, Open Approach (ICD-10-PCS; principal; 2017-06-01 09:15)
DX: M17.12 Unilateral primary osteoarthritis, left knee (principal); M48.02 Spinal stenosis, cervical region; K76.0 Fatty (change of) liver, not elsewhere classified; I10 Essential (primary) hypertension; E78.00 Pure hypercholesterolemia, unspecified; F90.9 Attention-deficit hyperactivity disorder, unspecified type; J30.2 Other seasonal allergic rhinitis; M48.061 Spinal stenosis, lumbar region without neurogenic claudication; R11.0 Nausea; E66.9 Obesity, unspecified; Z68.33 Body mass index [BMI] 33.0-33.9, adult; R73.03 Prediabetes; M25.762 Osteophyte, left knee; Z85.820 Personal history of malignant melanoma of skin; Z82.49 Family history of ischemic heart disease and other diseases of the circulatory system; Z80.9 Family history of malignant neoplasm, unspecified; Z87.891 Personal history of nicotine dependence; Z72.89 Other problems related to lifestyle
CPT/HCPCS: 36415; 80048; 85014; 85018; 85049; 85610; 86850; 86900; 86901; 94760; A9270-GY; C1776; J0690; J1100; J1170; J1650; J1885; J2250; J2405; J2704; J3010

== ENCOUNTER 2021-10-19 12:02 | Observation (INO) ==
[~2021-10-19 12:02] MED LIST: Buffered Lidocaine 1% SYRIN 1 ml INTRADERM ONE; HYDROmorphone 1 MG/1 ML SYRINGE IV PRN; Lactated Ringers 1000 ml BAG 1,000 ML IV SCH; Naloxone 0.4 mg VIAL 0.4 mg/ml 1 ml VIAL IV PRN; Prochlorperazine 5 mg/ml 2 ml VIAL (10 mg) IV PRN
[2021-10-19] MEDS ORDERED: ROPIVACAINE 5 MG/ML 30 ML BTL (0.5%) ONE (12:20)
[2021-10-19] MEDS ORDERED: ceFAZolin 2 GM in NS PREMIX 2 GM/100 ML BAG IVPB ONE (12:48)
[2021-10-19] MEDS ORDERED: fentaNYL 250 mcg/5 ml 50 MCG/ML 5 ml VIAL (250 MCG) ONE (14:23)
[2021-10-19] MEDS ORDERED: Midazolam 2 mg/2 ml VIAL 1 mg/ml 2 ml VIAL (2 mg) ONE (14:23)
[2021-10-19] MEDS ORDERED: Sodium Citrate/Citric Acid LIQ 15 ML UDC ONE (14:26)
[2021-10-19] MEDS ORDERED: Propofol 10 MG/ML 20 ML BTL ONE ×2 (14:50→15:55)
[2021-10-19] MEDS ORDERED: Sodium Citrate/Citric Acid LIQ 15 ML UDC PO ONE (15:01)
[2021-10-19] MEDS ORDERED: Lidocaine 1% MPF 2 ML VIAL ONE (15:21)
[2021-10-19] MEDS ORDERED: Bupivacaine 0.5% PF 10 ML SDV VIAL INJ ONE (15:23)
[2021-10-19] MEDS ORDERED: Ondansetron ODT 4 mg TAB 4 MG TAB PO PRN (15:56)
[2021-10-19] MEDS ORDERED: Morphine 2 MG/ML SYRINGE IV PRN (15:56)
[2021-10-19] MEDS ORDERED: Ondansetron 4 mg VIAL 2 MG/ML 2 ml VIAL IV PRN (15:56)
[2021-10-19] MEDS ORDERED: Lactulose 30 ml UDC PO PRN (15:56)
[2021-10-19] MEDS ORDERED: Magnesium Hydroxide LIQ 30 ML UDC PO PRN (15:56)
[2021-10-19] MEDS ORDERED: ceFAZolin 1 GM ADVAN 1 GM in NS 0.9% 50 ML 50 ML IVPB SCH (16:00)
[2021-10-19] MEDS ORDERED: Dextrose 50% Syringe 50 ml 25 GM/50 ML SYRINGE IV PUSH PRN (17:39)
[2021-10-19] MEDS: Lactated Ringers 1000 ml BAG 1,000 ML IV SCH (18:54)
[2021-10-19] MEDS: ceFAZolin 1 GM ADVAN 1 GM in NS 0.9% 50 ML 50 ML IVPB SCH (22:52)
[2021-10-19] MEDS: Magnesium Hydroxide LIQ 30 ML UDC PO SCH (22:53)
[2021-10-20] MEDS: ceFAZolin 1 GM ADVAN 1 GM in NS 0.9% 50 ML 50 ML IVPB SCH ×2 (05:20→13:47)
[2021-10-20] MEDS: Lactated Ringers 1000 ml BAG 1,000 ML IV SCH (05:23)
[2021-10-20 07:24] LABS: Hematocrit 35 % (42-52); Hemoglobin 12.1 g/dL (14.0-18.0); Mean Platelet Volume 8.1 fL (7.4-10.4); Platelet Count 209 10^3/uL (150-450)
[2021-10-20 08:14] LABS: Calcium 8.6 mg/dL (8.6-10.3); Potassium 4.4 mmol/L (3.5-5.0); eGFR CKD-EPI 98.4 (>60)
[2021-10-20] MEDS: Vitamin THERAPEUTIC TAB PO SCH (09:35)
[2021-10-20] MEDS: Magnesium Hydroxide LIQ 30 ML UDC PO SCH ×2 (09:35→21:56)
[2021-10-21 06:01] LABS: Hematocrit 35 % (42-52); Mean Platelet Volume 8.1 fL (7.4-10.4); Platelet Count 206 10^3/uL (150-450)
[2021-10-21 08:12] VITALS: BP 126/76
[2021-10-21] MEDS: Vitamin THERAPEUTIC TAB PO SCH (08:27)
[2021-10-21] MEDS: Magnesium Hydroxide LIQ 30 ML UDC PO SCH (08:28)
== END 2021-10-21 10:00 | disposition home or self-care (01) ==
LOC: OR 12:02 → SSU 12:02
PROVIDERS: ADMIT Orthopaedic Surgery Adult Reconstructive Orthopaedic Surgery; ATTEND Orthopaedic Surgery Adult Reconstructive Orthopaedic Surgery